=== PATIENT | female | born 1950 | race Caucasian/White ===

== ENCOUNTER 2019-07-27 21:22 | Inpatient (IN) | payer SELFPAY ==
[~2019-07-27] VITALS: Ht 152.4 cm; Wt 51.5 kg
[2019-07-27] MEDS ORDERED: PANT40TA25 PO (21:44)
[2019-07-27] MEDS ORDERED: METF-961 PO (21:44)
[2019-07-27] MEDS ORDERED: SULI200T4 PO (21:44)
[2019-07-27] MEDS ORDERED: GLYB5 PO (21:44)
[2019-07-27] MEDS ORDERED: PHEN-846 PO (21:44)
[2019-07-27] MEDS ORDERED: SERT50TA12 PO (21:44)
[2019-07-27] MEDS ORDERED: HYDR-3831 PO (21:44)
[2019-07-27 22:30] LABS: BASOPHILS % (AUTO) 0.4 % (0.0-2.0); EOSINOPHILS % (AUTO) 0.3 % (1.0-6.0); HEMOGLOBIN 12.1 g/dL (12.0-16.0); LYMPHOCYTES # (AUTO) 0.8 K/uL (1.0-4.8); LYMPHOCYTES % (AUTO) 10.7 % (22.0-44.0); MEAN CORPUSCULAR HEMOGLOBIN 28.9 pg (26.0-34.0); MEAN CORPUSCULAR HGB CONC 32.6 G/dL (31.0-37.0); MEAN CORPUSCULAR VOLUME 89 fL (80-100); MONOCYTES # (AUTO) 0.4 K/uL (0.1-1.0); NEUTROPHILS # (AUTO) 6.2 K/uL (1.8-7.7); NEUTROPHILS % (AUTO) 82.6 % (40.0-70.0); PLATELET COUNT (AUTO) 280 K/uL (150-450); RED BLOOD CELL COUNT(AUTO) 4.18 MIL/uL (4.00-5.20); RED CELL DISTRIBUTION WIDTH 14.3 % (11.5-14.5)
[2019-07-27 22:43] LABS: INR 1.1 (0.9-1.1); PROTHROMBIN TIME 10.9 SEC (9.4-11.6)
[2019-07-27 22:56] LABS: B-TYPE NATRIURETIC PEPTIDE 343 pg/mL (0-100)
[2019-07-27 22:58] LABS: CARBON DIOXIDE 22 mmol/L (22-29); CHLORIDE 89 mmol/L (98-107); CREATININE 0.86 mg/dL (0.60-1.30); GLOMERULAR FILTR. RATE CALC > 60 mL/min (>60); GLUCOSE,RANDOM 71 mg/dL (70-110); POTASSIUM 5.4 mmol/L (3.5-5.1); UREA NITROGEN, BLOOD 20 mg/dL (7-18)
[2019-07-27 22:59] LABS: ALANINE AMINOTRANSFERASE 30 U/L (12-78); ALBUMIN 2.3 g/dL (3.4-5.0); ALKALINE PHOSPHATASE 171 U/L (46-116); ASPARTATE AMINOTRANSFERASE 58 U/L (15-37); BILIRUBIN,TOTAL 0.4 mg/dL (0.1-1.0); CALCIUM, TOTAL 8.3 mg/dL (8.8-10.5); CREATINE KINASE, TOTAL ONLY 248 U/L (26-192); TOTAL PROTEIN, SERUM 6.6 g/dL (6.4-8.2)
[2019-07-27 23:00] LABS: ANION GAP 7 mmol/L (8-16); SODIUM SERUM 118 mmol/L (136-145)
[2019-07-28] MEDS ORDERED: CALCIUM GLUCONATE 0.465 MEQ/ML 10 ML VIAL IVP ONE
[2019-07-28] MEDS ORDERED: SODIUM BICARBONATE [ADULT] 8.4% 50 MEQ/50 ML SYRINGE IVP ONE
[2019-07-28] MEDS ORDERED: FUROSEMIDE 20 MG/2 ML VIAL IVP ONE
[2019-07-28 00:02] LABS: GLUCOSE,POINT OF CARE 76 MG/DL (70-110)
[2019-07-28] MEDS ORDERED: ONDANSETRON HCL 4 MG/2 ML VIAL IVP PRN ×2 (00:15→06:30)
[2019-07-28] MEDS ORDERED: ACETAMINOPHEN 325 MG TABLET PO PRN (00:15)
[2019-07-28] MEDS ORDERED: 0.9% SODIUM CHLORIDE 10 ML SYRINGE IVP PRN (00:15)
[2019-07-28] MEDS ORDERED: DEXTROSE 50%-WATER 25 GM/50 ML SYRINGE IVP ONE ×3 (00:15→09:00)
[2019-07-28 00:42] LABS: FREE T4 (FREE THYROXINE) 1.39 ng/dL (0.76-1.46); THYROID STIMULATING HORMONE 2.83 uIU/mL (0.36-3.74)
[2019-07-28 01:28] LABS: GLUCOSE,POINT OF CARE 244 MG/DL (70-110)
[2019-07-28 01:28] LABS: GLUCOSE,POINT OF CARE 104 MG/DL (70-110)
[2019-07-28 01:36] VITALS: BP 144/69
[2019-07-28 05:22] VITALS: BP 150/57
[2019-07-28] MEDS ORDERED: IPRATROPIUM BROMIDE 0.5 MG/2.5 ML NEB SOLUTION NEB PRN (06:30)
[2019-07-28] MEDS ORDERED: ZOLPIDEM TARTRATE 5 MG TABLET PO PRN (06:30)
[2019-07-28] MEDS ORDERED: ALBUTEROL SULFATE 2.5 MG/0.5 ML NEB SOLUTION NEB PRN (06:30)
[2019-07-28] MEDS ORDERED: BISACODYL 10 MG RECTAL RECTAL SUPPOSITORY PR PRN (06:30)
[2019-07-28] MEDS ORDERED: MORPHINE SULFATE 2 MG/ML SYRINGE IVP PRN (06:30)
[2019-07-28] MEDS ORDERED: HYDROCODONE/ACETAMINOPHEN 5-325 MG TABLET PO PRN (06:30)
[2019-07-28] MEDS ORDERED: MAGNESIUM HYDROXIDE SUSPENSION 30 ML UDCUP PO PRN (06:30)
[2019-07-28] MEDS: GlyBURIDE 5 MG TABLET PO SCH ×2 (06:30→17:30)
[2019-07-28 07:33] VITALS: BP 137/57
[2019-07-28 07:44] LABS: BASOPHILS % (AUTO) 0.6 % (0.0-2.0); EOSINOPHILS % (AUTO) 0.5 % (1.0-6.0); HEMATOCRIT 32.1 % (36-46); HEMOGLOBIN 10.6 g/dL (12.0-16.0); LYMPHOCYTES % (AUTO) 12.3 % (22.0-44.0); MEAN CORPUSCULAR HEMOGLOBIN 29.3 pg (26.0-34.0); MEAN CORPUSCULAR HGB CONC 33.1 G/dL (31.0-37.0); MEAN CORPUSCULAR VOLUME 88 fL (80-100); MONOCYTES # (AUTO) 0.6 K/uL (0.1-1.0); MONOCYTES % (AUTO) 7.3 % (2.0-9.0); NEUTROPHILS # (AUTO) 6.1 K/uL (1.8-7.7); NEUTROPHILS % (AUTO) 79.3 % (40.0-70.0); PLATELET COUNT (AUTO) 245 K/uL (150-450); RED BLOOD CELL COUNT(AUTO) 3.63 MIL/uL (4.00-5.20); RED CELL DISTRIBUTION WIDTH 13.8 % (11.5-14.5)
[2019-07-28 07:56] LABS: ANION GAP 6 mmol/L (8-16); CARBON DIOXIDE 22 mmol/L (22-29); CHLORIDE 92 mmol/L (98-107); CREATININE 0.76 mg/dL (0.60-1.30); GLOMERULAR FILTR. RATE CALC > 60 mL/min (>60); GLUCOSE,RANDOM 74 mg/dL (70-110); UREA NITROGEN, BLOOD 20 mg/dL (7-18)
[2019-07-28 08:01] LABS: ALANINE AMINOTRANSFERASE 26 U/L (12-78); ALBUMIN 1.9 g/dL (3.4-5.0); ALKALINE PHOSPHATASE 155 U/L (46-116); ASPARTATE AMINOTRANSFERASE 50 U/L (15-37); BILIRUBIN,TOTAL 0.4 mg/dL (0.1-1.0); TOTAL PROTEIN, SERUM 5.7 g/dL (6.4-8.2)
[2019-07-28 08:29] LABS: SODIUM SERUM 120 mmol/L (136-145)
[2019-07-28] MEDS ORDERED: INSULIN REGULAR, HUMAN 100 UNITS/ML IVP ONE ×2 (09:00)
[2019-07-28] MEDS: DOCUSATE SODIUM 100 MG CAPSULE PO SCH ×2 (09:00→20:33)
[2019-07-28] MEDS: PANTOPRAZOLE SODIUM 40 MG DR TABLET PO SCH (09:36)
[2019-07-28] MEDS: SERTRALINE HCL 50 MG TABLET PO SCH (09:36)
[2019-07-28] MEDS: HEPARIN SODIUM,PORCINE 5,000 UNITS/ML VIAL SQ SCH ×2 (09:36→15:33)
[2019-07-28] MEDS: HydrOXYzine HCL 10 MG TABLET PO SCH (09:36)
[2019-07-28 10:01] LABS: APPEARANCE,URINE CLEAR (CLEAR); BILIRUBIN,URINE NEGATIVE (NEGATIVE); GLUCOSE, URINE (UA) 250 mg/dL (NEGATIVE); KETONES,URINE NEGATIVE (NEGATIVE); LEUKOCYTE ESTERASE ,URINE NEGATIVE (NEGATIVE); NITRATE,URINE NEGATIVE (NEGATIVE); OCCULT BLOOD,URINE NEGATIVE (NEGATIVE); PH,URINE 5.5 (5.0-8.0); PROTEIN,URINE POS 1+ (NEGATIVE); UROBILINOGEN,URINE 0.2 mg/dL (<=1.0)
[2019-07-28 10:06] LABS: SODIUM,URINE RANDOM 54 mmol/l (20-110)
[2019-07-28 10:10] LABS: BACTERIA,URINE None Seen /HPF (None Seen); RBC,URINE 0-2 /HPF (0-2); SQUAMOUS EPITHELIAL CELL,UR Moderate /LPF (None Seen); WBC,URINE None Seen /HPF (0-5)
[2019-07-28 10:11] LABS: OSMOLALITY,URINE 240 mOS/kg (50-1200)
[2019-07-28] MEDS ORDERED: DEXTROSE 50%-WATER 25 GM/50 ML SYRINGE IVP PRN (10:15)
[2019-07-28] MEDS ORDERED: SODIUM CHLORIDE 3% 500 ML IV ONE (10:45)
[2019-07-28 11:13] VITALS: BP 139/72
[2019-07-28 14:14] LABS: GLUCOMETER DEV NAME(LOC) 5N.1; GLUCOSE,POINT OF CARE 82 MG/DL (70-110)
[2019-07-28 14:14] LABS: GLUCOMETER DEV NAME(LOC) 5N.1; GLUCOSE,POINT OF CARE 154 MG/DL (70-110)
[2019-07-28 14:14] LABS: GLUCOMETER DEV NAME(LOC) 5N.1; GLUCOSE,POINT OF CARE 80 MG/DL (70-110)
[2019-07-28] MEDS ORDERED: BARIUM SULFATE 0.1% SUSPENSION 450 ML BOTTLE ONE (14:59)
[2019-07-28 15:34] VITALS: BP 138/60
[2019-07-28 18:01] LABS: ANION GAP 7 mmol/L (8-16); CALCIUM, TOTAL 8.3 mg/dL (8.8-10.5); CARBON DIOXIDE 22 mmol/L (22-29); CHLORIDE 91 mmol/L (98-107); CREATININE 0.71 mg/dL (0.60-1.30); GLOMERULAR FILTR. RATE CALC > 60 mL/min (>60); GLUCOSE,RANDOM 72 mg/dL (70-110); POTASSIUM 5.7 mmol/L (3.5-5.1); UREA NITROGEN, BLOOD 16 mg/dL (7-18)
[2019-07-28 18:13] LABS: SODIUM SERUM 120 mmol/L (136-145)
[2019-07-28] MEDS ORDERED: SODIUM ZIRCONIUM CYCLOSILICATE 5 GM POWDER PACKET PO ONE (18:45)
[2019-07-28 19:31] VITALS: BP 142/64
[2019-07-29] VITALS (7 sets, daily range): BP systolic 127–170; BP diastolic 47–75
[2019-07-29] MEDS: HEPARIN SODIUM,PORCINE 5,000 UNITS/ML VIAL SQ SCH ×3 (00:45→16:29)
[2019-07-29] MEDS: GlyBURIDE 5 MG TABLET PO SCH (06:30)
[2019-07-29 07:38] LABS: GLUCOMETER DEV NAME(LOC) 5N.1; GLUCOSE,POINT OF CARE 72 MG/DL (70-110)
[2019-07-29 07:38] LABS: GLUCOMETER DEV NAME(LOC) 5N.1; GLUCOSE,POINT OF CARE 123 MG/DL (70-110)
[2019-07-29 07:38] LABS: GLUCOMETER DEV NAME(LOC) 5N.1; GLUCOSE,POINT OF CARE 92 MG/DL (70-110)
[2019-07-29 07:49] LABS: BASOPHILS % (AUTO) 0.7 % (0.0-2.0); EOSINOPHILS % (AUTO) 0.4 % (1.0-6.0); HEMATOCRIT 31.9 % (36-46); HEMOGLOBIN 10.7 g/dL (12.0-16.0); LYMPHOCYTES # (AUTO) 1.6 K/uL (1.0-4.8); LYMPHOCYTES % (AUTO) 25.9 % (22.0-44.0); MEAN CORPUSCULAR HEMOGLOBIN 29.6 pg (26.0-34.0); MEAN CORPUSCULAR HGB CONC 33.6 G/dL (31.0-37.0); MEAN CORPUSCULAR VOLUME 88 fL (80-100); MONOCYTES # (AUTO) 0.4 K/uL (0.1-1.0); MONOCYTES % (AUTO) 6.7 % (2.0-9.0); NEUTROPHILS # (AUTO) 4.2 K/uL (1.8-7.7); NEUTROPHILS % (AUTO) 66.3 % (40.0-70.0); PLATELET COUNT (AUTO) 310 K/uL (150-450); RED BLOOD CELL COUNT(AUTO) 3.62 MIL/uL (4.00-5.20); RED CELL DISTRIBUTION WIDTH 13.9 % (11.5-14.5)
[2019-07-29 08:21] LABS: % IRON SATURATION 27.1 % (22-44); IRON, SERUM 60 mcg/dL (50-175); TOTAL IRON BINDING CAPACITY 221 mcg/dL (250-450)
[2019-07-29 08:35] LABS: ALANINE AMINOTRANSFERASE 31 U/L (12-78); ALKALINE PHOSPHATASE 148 U/L (46-116); ANION GAP 10 mmol/L (8-16); ASPARTATE AMINOTRANSFERASE 50 U/L (15-37); BILIRUBIN,TOTAL 0.5 mg/dL (0.1-1.0); CALCIUM, TOTAL 8.1 mg/dL (8.8-10.5); CARBON DIOXIDE 19 mmol/L (22-29); CHLORIDE 92 mmol/L (98-107); CREATININE 0.72 mg/dL (0.60-1.30); FERRITIN 658 ng/mL (8-252); GLOMERULAR FILTR. RATE CALC > 60 mL/min (>60); GLUCOSE,RANDOM 94 mg/dL (70-110); POTASSIUM 5.2 mmol/L (3.5-5.1); TOTAL PROTEIN, SERUM 5.8 g/dL (6.4-8.2); UREA NITROGEN, BLOOD 15 mg/dL (7-18)
[2019-07-29 08:37] LABS: SODIUM SERUM 121 mmol/L (136-145)
[2019-07-29 08:54] LABS: OSMOLALITY 269 mOS/kg (270-310)
[2019-07-29] MEDS: DOCUSATE SODIUM 100 MG CAPSULE PO SCH ×2 (09:00→20:59)
[2019-07-29] MEDS: SERTRALINE HCL 50 MG TABLET PO SCH (09:40)
[2019-07-29] MEDS: HydrOXYzine HCL 10 MG TABLET PO SCH (09:40)
[2019-07-29] MEDS: PANTOPRAZOLE SODIUM 40 MG DR TABLET PO SCH (09:40)
[2019-07-29] MEDS: SODIUM ZIRCONIUM CYCLOSILICATE 5 GM POWDER PACKET PO SCH (09:40)
[2019-07-29] MEDS ORDERED: SODIUM CHLORIDE 3% 500 ML IV ONE (15:30)
[2019-07-29 16:14] LABS: GLUCOMETER DEV NAME(LOC) 5N.1; GLUCOSE,POINT OF CARE 183 MG/DL (70-110)
[2019-07-29] MEDS: INSULIN LISPRO 100 UNITS/ML SQ PRN (17:18)
[2019-07-29 17:36] LABS: SPECIMENTYPE,BODY FLUID ASCITES
[2019-07-29 17:44] LABS: CALCIUM, TOTAL 7.1 mg/dL (8.8-10.5); CREATININE 0.98 mg/dL (0.60-1.30); POTASSIUM 5.1 mmol/L (3.5-5.1)
[2019-07-29 20:20] LABS: GLUCOMETER DEV NAME(LOC) 5S.1; GLUCOSE,POINT OF CARE 344 MG/DL (70-110)
[2019-07-29] MEDS: ACETAMINOPHEN 325 MG TABLET PO PRN (20:39)
[2019-07-29 21:02] LABS: APPEARANCE,UNSPUN,BODY FLUID CLOUDY (CLEAR)
[2019-07-29 21:03] LABS: COLOR,BODY FLUID LT YELLOW (LT YELLOW); TOTAL VOLUME,BODY FLUID 3875 mL
[2019-07-29 21:04] LABS: BASOPHILS,BODY FLUID 0 %; EOSINOPHILS,BF (ANAL) 0 %; LYMPHOCYTES,BODY FLUID 50 %; MONOCYTES,BODY FLUID 3 %; NEUTROPHILS,BODY FLUID 40 %; WBC, BODY FLUID 90 /cu. mm.
[2019-07-29 21:05] LABS: OTHER CELLS,BODY FLUID MESOTHELIALS
[2019-07-29 21:06] LABS: APPEARANCE,SPUN,BODY FLUID CLEAR (CLEAR)
[2019-07-30 00:21] VITALS: BP 119/56
[2019-07-30] MEDS: HEPARIN SODIUM,PORCINE 5,000 UNITS/ML VIAL SQ SCH ×3 (01:36→15:55)
[2019-07-30] MEDS: ACETAMINOPHEN 325 MG TABLET PO PRN ×2 (01:36→12:15)
[2019-07-30 02:25] LABS: GLUCOMETER DEV NAME(LOC) 5N.1; GLUCOSE,POINT OF CARE 165 MG/DL (70-110)
[2019-07-30 06:08] VITALS: BP 144/65
[2019-07-30 06:37] LABS: GLUCOMETER DEV NAME(LOC) 5N.1; GLUCOSE,POINT OF CARE 106 MG/DL (70-110)
[2019-07-30 07:36] LABS: BASOPHILS % (AUTO) 1.2 % (0.0-2.0); HEMATOCRIT 29.1 % (36-46); HEMOGLOBIN 9.9 g/dL (12.0-16.0); LYMPHOCYTES # (AUTO) 1.3 K/uL (1.0-4.8); LYMPHOCYTES % (AUTO) 26.7 % (22.0-44.0); MEAN CORPUSCULAR HGB CONC 33.9 G/dL (31.0-37.0); MEAN CORPUSCULAR VOLUME 89 fL (80-100); MONOCYTES # (AUTO) 0.4 K/uL (0.1-1.0); MONOCYTES % (AUTO) 8.2 % (2.0-9.0); NEUTROPHILS # (AUTO) 3.1 K/uL (1.8-7.7); NEUTROPHILS % (AUTO) 62.9 % (40.0-70.0); PLATELET COUNT (AUTO) 231 K/uL (150-450); RED CELL DISTRIBUTION WIDTH 13.8 % (11.5-14.5)
[2019-07-30 07:40] VITALS: BP 129/88
[2019-07-30 08:46] LABS: ALANINE AMINOTRANSFERASE 26 U/L (12-78); ALBUMIN 1.7 g/dL (3.4-5.0); ALKALINE PHOSPHATASE 133 U/L (46-116); ANION GAP 8 mmol/L (8-16); BILIRUBIN,TOTAL 0.4 mg/dL (0.1-1.0); CALCIUM, TOTAL 7.5 mg/dL (8.8-10.5); CARBON DIOXIDE 20 mmol/L (22-29); CHLORIDE 101 mmol/L (98-107); CREATININE 0.85 mg/dL (0.60-1.30); GLOMERULAR FILTR. RATE CALC > 60 mL/min (>60); GLUCOSE,RANDOM 112 mg/dL (70-110); POTASSIUM 5.1 mmol/L (3.5-5.1); SODIUM SERUM 129 mmol/L (136-145); UREA NITROGEN, BLOOD 21 mg/dL (7-18)
[2019-07-30] MEDS: DOCUSATE SODIUM 100 MG CAPSULE PO SCH ×2 (09:02→20:20)
[2019-07-30] MEDS: SERTRALINE HCL 50 MG TABLET PO SCH (09:02)
[2019-07-30] MEDS: PANTOPRAZOLE SODIUM 40 MG DR TABLET PO SCH (09:02)
[2019-07-30] MEDS: HydrOXYzine HCL 10 MG TABLET PO SCH (09:02)
[2019-07-30] MEDS: SODIUM ZIRCONIUM CYCLOSILICATE 5 GM POWDER PACKET PO SCH (09:02)
[2019-07-30 09:15] LABS: ASPARTATE AMINOTRANSFERASE 34 U/L (15-37)
[2019-07-30 11:15] VITALS: BP 122/69
[2019-07-30] MEDS: INSULIN LISPRO 100 UNITS/ML SQ PRN ×3 (12:18→20:42)
[2019-07-30] MEDS: CefTRIAXone 1 GM/DEXTROSE 50 ML IV SCH (15:55)
[2019-07-30] MEDS: SODIUM CHLORIDE 1 GM TABLET PO SCH ×2 (15:55→20:20)
[2019-07-30] MEDS ORDERED: SODIUM CHLORIDE 0.9% 250 ML IV ONE (15:56)
[2019-07-30 16:10] VITALS: BP 113/45
[2019-07-30 20:12] VITALS: BP 147/60
[2019-07-30 21:58] LABS: GLUCOMETER DEV NAME(LOC) 5N.1; GLUCOSE,POINT OF CARE 207 MG/DL (70-110)
[2019-07-31] VITALS (7 sets, daily range): BP systolic 128–156; BP diastolic 50–74
[2019-07-31 05:32] LABS: GLUCOMETER DEV NAME(LOC) 5S.1; GLUCOSE,POINT OF CARE 173 MG/DL (70-110)
[2019-07-31 05:32] LABS: GLUCOMETER DEV NAME(LOC) 5S.1; GLUCOSE,POINT OF CARE 200 MG/DL (70-110)
[2019-07-31 08:04] LABS: BASOPHILS % (AUTO) 1.3 % (0.0-2.0); EOSINOPHILS % (AUTO) 1.2 % (1.0-6.0); HEMATOCRIT 28.2 % (36-46); HEMOGLOBIN 9.3 g/dL (12.0-16.0); LYMPHOCYTES # (AUTO) 1.1 K/uL (1.0-4.8); LYMPHOCYTES % (AUTO) 20.9 % (22.0-44.0); MEAN CORPUSCULAR HEMOGLOBIN 29.3 pg (26.0-34.0); MEAN CORPUSCULAR HGB CONC 32.9 G/dL (31.0-37.0); MEAN CORPUSCULAR VOLUME 89 fL (80-100); MONOCYTES # (AUTO) 0.4 K/uL (0.1-1.0); MONOCYTES % (AUTO) 7.4 % (2.0-9.0); NEUTROPHILS # (AUTO) 3.7 K/uL (1.8-7.7); NEUTROPHILS % (AUTO) 69.2 % (40.0-70.0); PLATELET COUNT (AUTO) 222 K/uL (150-450); RED BLOOD CELL COUNT(AUTO) 3.17 MIL/uL (4.00-5.20)
[2019-07-31] MEDS: SODIUM ZIRCONIUM CYCLOSILICATE 5 GM POWDER PACKET PO SCH (08:40)
[2019-07-31] MEDS: HydrOXYzine HCL 10 MG TABLET PO SCH (08:40)
[2019-07-31] MEDS: DOCUSATE SODIUM 100 MG CAPSULE PO SCH ×2 (08:40→20:42)
[2019-07-31] MEDS: SODIUM CHLORIDE 1 GM TABLET PO SCH (08:40)
[2019-07-31] MEDS: SERTRALINE HCL 50 MG TABLET PO SCH (08:40)
[2019-07-31] MEDS: HEPARIN SODIUM,PORCINE 5,000 UNITS/ML VIAL SQ SCH ×3 (08:40→15:32)
[2019-07-31] MEDS: PANTOPRAZOLE SODIUM 40 MG DR TABLET PO SCH (08:40)
[2019-07-31 08:48] LABS: ALANINE AMINOTRANSFERASE 25 U/L (12-78); ALBUMIN 1.6 g/dL (3.4-5.0); ALKALINE PHOSPHATASE 119 U/L (46-116); ANION GAP 9 mmol/L (8-16); ASPARTATE AMINOTRANSFERASE 31 U/L (15-37); BILIRUBIN,TOTAL 0.3 mg/dL (0.1-1.0); CALCIUM, TOTAL 7.7 mg/dL (8.8-10.5); CARBON DIOXIDE 20 mmol/L (22-29); CHLORIDE 103 mmol/L (98-107); CREATININE 0.59 mg/dL (0.60-1.30); GLOMERULAR FILTR. RATE CALC > 60 mL/min (>60); GLUCOSE,RANDOM 101 mg/dL (70-110); POTASSIUM 4.9 mmol/L (3.5-5.1); SODIUM SERUM 132 mmol/L (136-145); TOTAL PROTEIN, SERUM 4.9 g/dL (6.4-8.2); UREA NITROGEN, BLOOD 20 mg/dL (7-18)
[2019-07-31] MEDS: INSULIN LISPRO 100 UNITS/ML SQ PRN ×3 (11:39→20:57)
[2019-07-31] MEDS: SODIUM BICARBONATE 650 MG TABLET PO SCH (14:33)
[2019-07-31] MEDS: FUROSEMIDE 40 MG TABLET PO SCH (14:33)
[2019-07-31] MEDS: CefTRIAXone 1 GM/DEXTROSE 50 ML IV SCH (15:32)
[2019-07-31 17:55] LABS: GLUCOMETER DEV NAME(LOC) 5S.2A; GLUCOSE,POINT OF CARE 172 MG/DL (70-110)
[2019-08-01] MEDS: HEPARIN SODIUM,PORCINE 5,000 UNITS/ML VIAL SQ SCH ×2 (02:42→08:34)
[2019-08-01 04:19] VITALS: BP 136/55
[2019-08-01 05:51] LABS: GLUCOMETER DEV NAME(LOC) 5S.2A; GLUCOSE,POINT OF CARE 227 MG/DL (70-110)
[2019-08-01 06:48] LABS: HEMATOCRIT 28.6 % (36-46); HEMOGLOBIN 9.7 g/dL (12.0-16.0); LYMPHOCYTES # (AUTO) 1.1 K/uL (1.0-4.8); LYMPHOCYTES % (AUTO) 20.6 % (22.0-44.0); MEAN CORPUSCULAR HGB CONC 33.7 G/dL (31.0-37.0); MEAN CORPUSCULAR VOLUME 89 fL (80-100); MONOCYTES # (AUTO) 0.4 K/uL (0.1-1.0); MONOCYTES % (AUTO) 7.6 % (2.0-9.0); NEUTROPHILS # (AUTO) 3.6 K/uL (1.8-7.7); NEUTROPHILS % (AUTO) 68.8 % (40.0-70.0); PLATELET COUNT (AUTO) 217 K/uL (150-450); RED BLOOD CELL COUNT(AUTO) 3.22 MIL/uL (4.00-5.20); RED CELL DISTRIBUTION WIDTH 14.1 % (11.5-14.5)
[2019-08-01] MEDS: INSULIN LISPRO 100 UNITS/ML SQ PRN ×2 (06:56→11:44)
[2019-08-01 07:00] LABS: GLUCOMETER DEV NAME(LOC) 5N.1; GLUCOSE,POINT OF CARE 105 MG/DL (70-110)
[2019-08-01 07:00] LABS: GLUCOMETER DEV NAME(LOC) 5N.1; GLUCOSE,POINT OF CARE 179 MG/DL (70-110)
[2019-08-01 07:01] LABS: ANION GAP 8 mmol/L (8-16); CALCIUM, TOTAL 7.6 mg/dL (8.8-10.5); CARBON DIOXIDE 22 mmol/L (22-29); CHLORIDE 105 mmol/L (98-107); CREATININE 0.59 mg/dL (0.60-1.30); GLOMERULAR FILTR. RATE CALC > 60 mL/min (>60); GLUCOSE,RANDOM 146 mg/dL (70-110); POTASSIUM 4.8 mmol/L (3.5-5.1); SODIUM SERUM 135 mmol/L (136-145); UREA NITROGEN, BLOOD 18 mg/dL (7-18)
[2019-08-01 08:00] VITALS: BP 149/63
[2019-08-01] MEDS: SODIUM BICARBONATE 650 MG TABLET PO SCH (08:34)
[2019-08-01] MEDS: FUROSEMIDE 40 MG TABLET PO SCH (08:34)
[2019-08-01] MEDS: SERTRALINE HCL 50 MG TABLET PO SCH (08:34)
[2019-08-01] MEDS: SODIUM ZIRCONIUM CYCLOSILICATE 5 GM POWDER PACKET PO SCH (08:34)
[2019-08-01] MEDS: HydrOXYzine HCL 10 MG TABLET PO SCH (08:34)
[2019-08-01] MEDS: DOCUSATE SODIUM 100 MG CAPSULE PO SCH (08:34)
[2019-08-01] MEDS: PANTOPRAZOLE SODIUM 40 MG DR TABLET PO SCH (08:34)
[2019-08-01 11:50] LABS: GLUCOMETER DEV NAME(LOC) 5S.2A; GLUCOSE,POINT OF CARE 176 MG/DL (70-110)
[2019-08-01 11:50] LABS: GLUCOMETER DEV NAME(LOC) 5S.2A; GLUCOSE,POINT OF CARE 145 MG/DL (70-110)
[2019-08-01 12:00] VITALS: BP 136/63
[2019-08-01] MEDS ORDERED: LEVO-72 PO (14:20)
[2019-08-01] MEDS ORDERED: FURO40 PO (14:21)
[2019-08-01] MEDS ORDERED: SODI650T PO (14:22)
== END 2019-08-01 16:00 | disposition home or self-care (01) | DRG 640 ==
LOC: EMS 21:33 → 5N 23:31 → 5S 07-31 17:05
PROVIDERS: ADMIT Hospitalist; ATTEND Hospitalist
PROC: 0W9G3ZZ Drainage of Peritoneal Cavity, Percutaneous Approach (ICD-10-PCS; principal; 2019-07-29)
DX: E87.1 Hypo-osmolality and hyponatremia (principal); E43 Unspecified severe protein-calorie malnutrition; R65.10 Systemic inflammatory response syndrome (SIRS) of non-infectious origin without acute organ dysfunction; Z68.24 Body mass index [BMI] 24.0-24.9, adult; E11.9 Type 2 diabetes mellitus without complications; E87.5 Hyperkalemia; D64.9 Anemia, unspecified; K74.60 Unspecified cirrhosis of liver; I11.0 Hypertensive heart disease with heart failure; I50.9 Heart failure, unspecified; E16.2 Hypoglycemia, unspecified; E87.8 Other disorders of electrolyte and fluid balance, not elsewhere classified; Z03.818 Encounter for observation for suspected exposure to other biological agents ruled out; E88.09 Other disorders of plasma-protein metabolism, not elsewhere classified; E87.2 Acidosis
CPT/HCPCS: 49083; 74176; 76700; 76942; 80074; 82088; 82533; 82728; 82945; 83540; 83550; 83615; 83930; 83935; 84145; 84157; 84244; 84300; 84439; 84443; 87040; 87070; 87081; 87205; 87635; 88108; 89051; 93005; 99291; G0378; J0610; J0696; J1644; J1815; J1940; J3490; J7030; J7050